=== PATIENT | male | born 1995 | race Two or more races ===

== ENCOUNTER 2017-05-09 22:05 | Emergency (ER) | payer BC ==
[2017-05-09 22:12] VITALS: BP 137/76
[2017-05-09] MEDS ORDERED: PSEUDOEPHEDRINE HCL 30 MG TABLET PO ONE (23:14)
[2017-05-09] MEDS ORDERED: IBUPROFEN 800 MG TABLET PO ONE (23:14)
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
== END 2017-05-09 23:24 | disposition home or self-care (01) ==
LOC: ER 22:05
DX: R50.9 Fever, unspecified (principal); R51 Headache; M79.1 Myalgia
CPT/HCPCS: 99283

== ENCOUNTER 2017-05-27 21:11 | Emergency (ER) | payer BC ==
[2017-05-27 21:44] VITALS: BP 139/83
--- NOTE | 2017-05-27 22:58 | RADIOLOGY REPORT (SQ) ---
EXAM DESCRIPTION: ELBOW RIGHT OVER 2 VIEWS COMPLETED DATE/TIME: 05/27/2017 10:44 pm REASON FOR STUDY: injury COMPARISON: None. NUMBER OF VIEWS: Three views. TECHNIQUE: AP, LATERAL, AND OBLIQUE radiographic images acquired of the right elbow. LIMITATIONS: None. FINDINGS: MINERALIZATION: Normal. BONES: A nondisplaced fracture is seen of the radial head. JOINT: A prominent joint effusion is present. SOFT TISSUES: No soft tissue swelling. No foreign body. OTHER: No other significant finding. IMPRESSION: Prominent joint effusion and nondisplaced fracture of the radial head. TECHNICAL DOCUMENTATION: JOB ID: [id number] [employer]- All Rights Reserved Reading location - IP/workstation name: [email or web address]
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
[2017-05-27] MEDS ORDERED: DIPH/PERTUSS(ACELL)/TETANUS VAC/PF 0.5 ML SYR (>=10YO) IM ONE (23:42)
[2017-05-27] MEDS ORDERED: BACITRACIN ZINC OINTMENT 15 GM TP ONE (23:43)
[2017-05-28] MEDS ORDERED: HYDROCODONE/ACETAMINOPHEN 5-325 MG (6 TAB/ER DISP) PO PRN (00:18)
== END 2017-05-28 01:38 | disposition home or self-care (01) ==
LOC: ER 21:11
DX: S52.124A Nondisplaced fracture of head of right radius, initial encounter for closed fracture (principal); S00.81XA Abrasion of other part of head, initial encounter; S00.212A Abrasion of left eyelid and periocular area, initial encounter; S40.812A Abrasion of left upper arm, initial encounter; V86.56XA Driver of dirt bike or motor/cross bike injured in nontraffic accident, initial encounter; Y93.59 Activity, other involving other sports and athletics played individually; Y92.39 Other specified sports and athletic area as the place of occurrence of the external cause; Z87.891 Personal history of nicotine dependence
CPT/HCPCS: 99284; 90471; 73080; 90715; J3490